=== PATIENT | female | born 2000 | race Two or more races ===

== ENCOUNTER → 2020-06-05 | Outpatient (CLI) | payer OTHER ==
--- NOTE | 2020-06-05 16:12 | RAD ---
Exam Date: 06/05/2020 1:18 PM XR CHEST 2V Indication: Reason: ASTHMA / Spl. Instructions: / History: FINDINGS/ IMPRESSION: The cardiac silhouette and pulmonary vasculature are within normal limits. There is no focal consolidation, pleural effusion or pneumothorax. The visualized osseous structures are intact. Electronically signed by: Jonathan Gee MD (06/05/2020 4:10 PM) [id number]
== END ==
LOC: RAD 13:11
PROVIDERS: ATTEND Internal Medicine Critical Care Medicine
DX: J45.909 Unspecified asthma, uncomplicated (principal)
CPT/HCPCS: 71046